=== PATIENT | female | born 1950 | race Caucasian/White ===

== ENCOUNTER 2017-05-06 00:37 | Inpatient (IN) | payer MEDICARE ==
[2017-05-06] VITALS (36 sets, daily range): BP systolic 100–172; BP diastolic 47–132
[~2017-05-06] VITALS: Ht 162.6 cm; Wt 73.9 kg
--- NOTE | ~2017-05-06 | 2DMMODE ---
[facility] [address] [place] [address] 2 D/M-MODE ECHOCARDIOGRAM Name: STEPHON BOYLE Tirso Room #: 215-P ADM IN ..#: [id number] Admission: 05/06/17 Attend Phys: Marv Wilder MD Discharge: Date of : 52 Date of Service: 05/08/17 1150 Report #: [id number] THIS REPORT FOR: //name// APPROVED REPORT Study performed: 05/08/2017 10:21:27 EXAM: Comprehensive 2D, Doppler, and color-flow Echocardiogram Patient Location: Bedside Room #: 215 Status: routine BSA: 1.78 BP: 118/66 mmHg Other Information Study Quality: Adequate Indications SD 2D Dimensions RVDd: 28.57 mm LVEF(%): 59.43 (>50%) IVSd: 13.38 (7-11mm) LVOT Diam: 18.49 (18-24mm) LVDd: 38.97 mm PWd: 14.21 (7-11mm) Ascending Ao: 26.04 (22-36mm) LVDs: 26.87 (25-40mm) Aortic Root: 26.95 mm IVC: 10.00 mm Ruiz's LVEF: 59.43 % Volumes Left Atrial Volume (Systole) Single Plane 4CH: 37.32 mL Single Plane 2CH: 41.96 mL LA ESV Index: 23.00 mL/m2 Aortic Valve AoV Peak Willard.: 1.75 m/s AO Peak Gr.: 12.24 mmHg LVOT Max P.14 mmHg LVOT Max V: 0.89 m/s LARY Vmax: 1.36 cm2 Mitral Valve E/A Ratio: 0.6 MV Decel. Time: 311.69 ms MV E Max Willard.: 0.70 m/s [facility] [place] [address] 2 D/M-MODE ECHOCARDIOGRAM Name: STEPHON BOYLE Room #: 215-P [facility] IN M.R.#: [id number] Admission: 05/06/17 Attend Phys: Marv Wilder MD Discharge: Date of : 52 Date of Service: 05/08/17 1150 Report #: [id number] A Willard.: 1.15 m/s MV PHT: 90.39 ms IVRT: 121.11 ms Pulmonary Valve PV Peak Willard.: 1.17 m/s PV Peak Gr.: 5.58 mmHg Pulmonary Vein P Vein S: 0.55 m/s P Vein A: 0.26 m/s P Vein D: 0.30 m/s P Vein A Dur.: 114.2 msec P Vein S/D Ratio: 1.83 Tricuspid Valve RAP Estimate: 5.00 mmHg Left Ventricle The left ventricle is normal size. Paradoxical septal motion consistent with conduction abnormality. Mild concentric left ventricular hypertrophy. The left ventricular systolic function is normal. The left ventricular ejection fraction is within the normal range. LVEF is 55%. Mild diastolic dysfunction is present (impaired relaxation pattern). Right Ventricle The right ventricle is normal size. Right ventricle is mildly hypokinetic. Atria The left atrium size is normal. The right atrium size is normal. Aortic Valve Aortic valve leaflets are mildly thickened. Trace aortic regurgitation. There is no aortic valvular stenosis. Mitral Valve Mild mitral annular calcification. Trace mitral regurgitation. No evidence of mitral valve stenosis. Tricuspid Valve The tricuspid valve is normal in structure. Trace tricuspid regurgitation. Unable to assess PA pressure. Pulmonic Valve Pulmonic valve is not well visualized. Trace pulmonic regurgitation. [address] [address] 2 D/M-MODE ECHOCARDIOGRAM Name: MONTANASTEPHON Tirso Room #: 215-P [facility] IN .R.#: [id number] Admission: 05/06/17 Attend Phys: Marv Wilder MD Discharge: Date of : 52 Date of Service: 05/08/17 1150 Report #: [id number] Great Vessels The aortic root is normal in size. IVC is normal in size and collapses >50% with inspiration. Pericardium There is no pericardial effusion. <Conclusion> The left ventricle is normal size. Mild concentric left ventricular hypertrophy. The left ventricular systolic function is normal. Mild diastolic dysfunction is present (impaired relaxation pattern). The right ventricle is normal size. The left atrium size is normal. Aortic valve leaflets are mildly thickened. Trace aortic regurgitation. Trace mitral regurgitation. <ELECTRONICALLY SIGNED> By: Max Bermudez MD 05/08/17 1150 1150 1150 Max Bermudez MD /INF
--- NOTE | ~2017-05-06 | EKG ---
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
--- NOTE | ~2017-05-06 | HC ---
[facility] [place] [address] CONSULTATION Name: STEPHON BOYLE Room #: 246-P [facility] IN ..#: [id number] Admission: 05/06/17 Attend Phys: Marv Wilder MD Discharge: Date of : 52 Report #: [id number] THIS REPORT FOR: //name// CC: Marv Wilder DATE OF SERVICE: 05/06/2017 INDICATION: Chest pain. HISTORY OF PRESENT ILLNESS: This is a 67-year-old female with a history of hypertension, hypercholesterolemia, tobacco use, presenting with acute onset of chest pain. She was visiting friends when she developed chest discomfort in the substernal area, radiating to the back and down the left arm. She took an aspirin and a blood pressure medication, but the pain persisted and she presented to the ER at [facility]. The initial evaluation revealed hypertension and a positive troponin level. She was subsequently transferred to [facility]. She is pain free at this time. However, the troponin level is positive and she does have a left bundle-branch block. There is no history of fever, chills, nausea or diarrhea. PAST MEDICAL HISTORY: Hypertension, hypercholesterolemia and tobacco use. Negative for diabetes. ALLERGIES: None. MEDICATIONS: Include Zestoretic one tablet a day. SOCIAL HISTORY: Positive cigarette use daily. FAMILY HISTORY: Negative for premature CAD. REVIEW OF SYSTEMS: A full 10-point review of systems performed. Only the pertinent positives and negatives are described in the HPI. PHYSICAL EXAMINATION: VITAL SIGNS: Blood pressure 110/60, heart rate is 60 beats per minute. GENERAL APPEARANCE: A well-developed, well-nourished female in no acute respiratory distress. HEAD AND EYES: Normocephalic. Sclerae are anicteric. ENT: Oral mucosa moist. NECK: Supple. LUNGS: Clear to auscultation. CARDIAC: Regular rate and rhythm, S1, S2 positive. ABDOMEN: Soft. EXTREMITIES: No major joint deformities. No edema, no cyanosis. [facility] [address] [place] [address] CONSULTATION Name: STEPHON BOYLE Room #: [facility] IN ..#: [id number] Admission: 05/06/17 Attend Phys: Marv Wilder MD Discharge: Date of : 52 Report #: [id number] ECG reveals sinus rhythm, left bundle-branch block. LABORATORY VALUES: White count is 9.9, hemoglobin is 13.3. Sodium is 140, creatinine is 1.2. Troponin is positive at 12.53. LDL is elevated. ASSESSMENT AND PLAN: 1. Non-ST elevation myocardial infarction. Given her presentation and CAD risk factors, we discussed the pros and cons of a cardiac catheterization. All questions were answered and she wishes to proceed with a cardiac catheterization. 2. Left bundle-branch block. 3. Hypertension, continue medications. 4. Hypercholesterolemia, start a statin medication. 5. Tobacco use, complete smoking cessation is recommended. <ELECTRONICALLY SIGNED> By: Max Bermudez MD 05/07/17 0812 0856 1814 Max Bermudez MD /nt
--- NOTE | ~2017-05-06 | CATHLAB ---
[facility] [address] [place] [address] INVASIVE PROCEDURE REPORT Name: STEPHON BOYLE Room #: 246-P [facility] IN ..#: [id number] Admission: 05/06/17 Attend Phys: Marv Wilder MD Discharge: Date of : 52 Date of Service: 05/06/17 1236 Report #: [id number] THIS REPORT FOR: //name// APPROVED REPORT Patient Details Patient Status: In-Patient Room #: The patient is a 67 year-old female Event Personnel Max Bermudez Technical Training Coordinator, Yoli Nicholas, Suzan Steen Barrett, Susan RN RN, Umer Serrano RN sand worker Performed Art Access - R femoral artery* 23361 Initial Mod Sed Same Phys/QHP Gr5y 680435 91502 Mod Sed Same Phys/QHP Ea 547882 Left Heart Cath w/or w/o Coronaries [id number] [facility] [address] w/wo Plasty Single CIRC 588447 [address] Place w/wo Plasty Single Left Main [id number] Indication Non-STEMI , Dyspnea, Chest pain Risk Factors Hypercholesterolemia, Hypertension, Tobacco History () Procedure Narrative The patient was brought urgently to the Cardiac Catheterization Laboratory and was prepped and draped in a sterile manner. The Right Groin^ was infiltrated with 1% Lidocaine subcutaneous anesthesia. A PINNACLE 4FR Sheath #[id number] sheath was inserted into the RFA^. Coronary angiography was performed using coronary diagnostic catheters. The right coronary system was accessed and visualized with a JR 4 catheter. The left coronary system was accessed and visualized with a JL 4 catheter. The left ventricle was accessed and visualized with a Pigtail catheter. Left ventricular/Aortic Valve gradient assessed via catheter pullback. Left ventriculogram was performed in COLLIER projection. The patient tolerated the procedure well and there were no complications associated with the procedure. There was no hematoma. Intraoperative Conscious Sedation Sedation start time: 10:02 Case end Time: 11:35 [facility] [place] [address] INVASIVE PROCEDURE REPORT Name: MONTANASTEPHON Tirso Room #: 246-P [facility] IN [facility]#: [id number] Admission: 05/06/17 Attend Phys: Marv Wilder MD Discharge: Date of : 52 Date of Service: 05/06/17 1236 Report #: [id number] Fentanyl 75.0 mcg Versed 2.0 mg Fluoro Time: 26.12 minutes Dose: DAP 88770.50 cGycm2 3889 mGy Contrast Type and Amount: Visipaque 450 ml Coronary Angiography The patient's coronary anatomy is right dominant. Diagnostic Cath Left Main Patent vessel, with mild disease in the distal segment. LAD Moderate stenosis at the ostium, 40-50%. There is a moderate discrete stenosis in the mid segment, 50%. Diagonal 1 Has a high takeoff, with an ostial stenosis, 40%. Diagonal 2 Patent vessel, with no flow limiting lesions. Circumflex There are severe lesions in the proximal segment with haziness consistent with thrombus. At least 90% stenotic. OM1 Patent vessel, no flow limiting lesions. Right Coronary Dominant vessel with mild diffuse disease in the proximal segment, 30%. R PDA Patent vessel, with no flow-limiting lesions. RPLV Patent vessel, with no flow-limiting lesions. Left Ventriculography The left ventricle is normal in size with normal contractility. The left ventricular ejection fraction is estimated to be 50-55%. Hemodynamics The aortic pressure is 156/78 mmHg with a mean of 104 mmHg. The left ventricular pressure is 141/5 mmHg with a mean of mmHg. The left ventricular end diastolic pressure is 20 mmHg. PCI Technique Lesion Anticoagulation was achieved with Angiomax. Patient was preloaded with Plavix. Percutaneous coronary intervention was performed on the proximal circumflex artery segment. The lesion stenosis prior to intervention was 90% with FANTA 3 flow. A VISTA 6FR XB 3.5 #[id number] Guide Catheter was used to engage the Left Main ostium. A Luge Wire .014 x 182CM #[id number] Interventional Guidewire was used to cross the lesion. BALLOON DILATION A Balloon catheter Euphora RX 2.5 x 12 #[id number] was inserted and [facility] [address] [place] [address] INVASIVE PROCEDURE REPORT Name: STEPHON BOYLE Room #: 246-P [facility] IN M.R.#: [id number] Admission: 05/06/17 Attend Phys: Marv Wilder MD Discharge: Date of : 52 Date of Service: 05/06/17 1236 Report #: [id number] inflated up to 10.00atm for 20seconds. STENT DEPLOYMENT A drug-eluting stent RESOLUTE RX 2.5 X 14 #[id number] was inserted and inflated up to 9.00atm for 14seconds. POST STENT DEPLOYMENT BALLOON DILATION A Balloon catheter Euphora NC RX 2.75 x 15 #[id number] was inserted and inflated up to 16.00atm for 13seconds. Additional Inflation: 18.00atm for 10seconds. Final angiography reveals 0 % stenosis with FANTA 3 flow. STENT DEPLOYMENT A drug-eluting stent RESOLUTE RX 2.75 X 18 #[id number] was inserted and inflated up to 10.00atm for 12seconds. The stent was placed just proximal and overlapping the initial stent. POST STENT DEPLOYMENT BALLOON DILATION A Balloon catheter Euphora NC RX 2.75 x 15 #[id number] was inserted and inflated up to 18.00atm for 10seconds. Final angiography reveals 0 % stenosis with FANTA 3 flow. PCI Technique Lesion 2 Percutaneous Coronary Intervention was performed on the LM. Patient was preloaded with Plavix. A VISTA 6FR XB 3.5 #[id number] Guide Catheter was used to engage the ostium. A Luge Wire .014 x 182CM #[id number] Interventional Guidewire was used to cross the lesion. Balloon Dilation A Balloon catheter Euphora RX 3.0 x 12 #[id number] was inserted and inflated up to 10.00atm for 23seconds. There was a localized dissection within the mid segment of the left main artery. The patient was hemodynamic stable but had chest discomfort. Subsequent injections revealed an increase in the size of the dissection. This area was ballooned and then stented with a 3.5 mm resolute stent. The distal segment of the stent was dilated with a 3.5 mm noncompliant balloon and the more proximal area of the stent was postdilated with a 4.0 mm noncompliant balloon(Euphora NC4 0.0 x 8 mm). Final injections revealed a patent left main stent with FANTA-3 blood flow down the LAD and left circumflex arteries. There was still a visible localized dissection within the mid left main artery. The patient remained hemodynamically stable and the chest pain resolved. Stent Deployment [facility] [address] [place] [address] INVASIVE PROCEDURE REPORT Name: MONTANASTEPHON Tirso Room #: 246-P [facility] IN ..#: [id number] Admission: 05/06/17 Attend Phys: Marv Wilder MD Discharge: Date of : 52 Date of Service: 05/06/17 1236 Report #: [id number] A drug-eluting stent RESOLUTE RX 3.5 X 12 #[id number] was inserted and inflated up to 9.00atm for 12seconds. Post Stent Deployment Balloon Dilation A Balloon catheter Euphora NC RX 3.5 x 6 #[id number] was inserted and inflated up to 18.00atm for 20seconds. Additional Inflation: 16.00atm for 16seconds. Additional Inflation: 16.00atm for 15seconds. POST STENT DEPLOYMENT BALLOON DILATION A Balloon catheter Euphora NC RX 4.0 x 8 #[id number] was inserted and inflated up to 14atm for 17seconds. Additional Inflation: 14atm for 14seconds. Conclusion 1. Successful insertion of drug-eluting stents into the proximal segment of the left circumflex artery. 2. 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 This was stented with a 3.5 mm resolute stent, post dilated with a 4.0 mm noncompliant balloon. 3. Right dominant system. 4. Normal LV systolic function. 5. Recommend dual antiplatelet therapy. 6. Recommend CV surgical consultation. <ELECTRONICALLY SIGNED> By: Max Bermudez MD 05/06/17 1236 1236 1236 Max Bermudez MD /INF
--- NOTE | ~2017-05-06 | EKG ---
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
--- NOTE | ~2017-05-06 | EKG ---
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
--- NOTE | ~2017-05-06 | EKG ---
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
[2017-05-06] MEDS ORDERED: ZESTORETIC 20-1 EAC3 PO (03:30)
[2017-05-06 03:44] LABS: HEMATOCRIT 37.8 % (37.0-47.0); HEMOGLOBIN 13.3 gm/dL (12.0-15.0); MCH 32.7 pg (26.0-34.0); MCHC 35.2 g/dL (28.0-37.0); MCV 92.9 fL (80.0-100.0); RBC 4.06 mil/uL (4.20-5.00); RDW 12.9 % (10.5-14.5); WBC 9.9 thou/uL (4.0-11.0)
[2017-05-06 03:54] LABS: ANION GAP 9 mmol/L (7-16); BUN 23 mg/dL (7-18); CALCIUM 8.9 mg/dL (8.5-10.1); CHLORIDE 106 mmol/L (98-107); CO2 25 mmol/L (21-32); CREATININE 1.2 mg/dL (0.6-1.0); GLUCOSE 129 mg/dL (74-106); POTASSIUM 3.8 mmol/L (3.5-5.1); SODIUM 140 mmol/L (136-145)
[2017-05-06 04:02] LABS: CHOLESTEROL 237 mg/dL (<200); HDL CHOLESTEROL 35 mg/dL (>40); LDL CHOLESTEROL 123 mg/dL (<100); TC:HDL 6.8 Ratio (Not establshd); TRIGLYCERIDE 398 mg/dL (<150); VLDL 80 mg/dL (<40)
[2017-05-06 04:09] LABS: SERUM ASSESSMENT Slight Lipemia; TROPONIN-I 12.53 ng/mL (<0.06)
[2017-05-06 08:49] LABS: HEMATOCRIT 38.3 % (37.0-47.0); HEMOGLOBIN 13.2 gm/dL (12.0-15.0); MCH 31.8 pg (26.0-34.0); MCHC 34.3 g/dL (28.0-37.0); MCV 92.7 fL (80.0-100.0); RBC 4.14 mil/uL (4.20-5.00); RDW 13.3 % (10.5-14.5); WBC 7.9 thou/uL (4.0-11.0)
[2017-05-06 08:59] LABS: PROTIME 9.6 Seconds (9.3-11.4)
[2017-05-07] VITALS (15 sets, daily range): BP systolic 85–149; BP diastolic 39–113
[2017-05-07 03:44] LABS: HEMOGLOBIN 12.6 gm/dL (12.0-15.0); MCH 32.3 pg (26.0-34.0); MCHC 34.9 g/dL (28.0-37.0); MCV 92.5 fL (80.0-100.0); RBC 3.89 mil/uL (4.20-5.00); RDW 13.1 % (10.5-14.5)
[2017-05-07 04:00] LABS: CREATININE 1.3 mg/dL (0.6-1.0); POTASSIUM 3.8 mmol/L (3.5-5.1)
[2017-05-07 04:09] LABS: TROPONIN-I 11.84 ng/mL (<0.06)
[2017-05-08 01:15] VITALS: BP 108/61
[2017-05-08 03:47] LABS: CREATININE 1.3 mg/dL (0.6-1.0)
[2017-05-08 03:49] LABS: TROPONIN-I 7.06 ng/mL (<0.06)
[2017-05-08 04:30] VITALS: BP 122/66
[2017-05-08 07:55] VITALS: BP 118/66
[2017-05-08] MEDS ORDERED: ASPIR 8181 MG PO (08:30)
[2017-05-08] MEDS ORDERED: CARVEDILOL6.25 MG PO (08:30)
[2017-05-08] MEDS ORDERED: PEPCID20 MG PO (08:30)
[2017-05-08] MEDS ORDERED: ATORVASTATIN CA40 MG PO (08:30)
[2017-05-08] MEDS ORDERED: LISINOPRIL5 MG PO (08:30)
[2017-05-08] MEDS ORDERED: CLOPIDOGREL75 MG PO (08:30)
[2017-05-08 10:58] VITALS: BP 118/66
[2017-05-08 11:01] VITALS: BP 118/66
== END 2017-05-08 12:39 | disposition home or self-care (01) | DRG 247 ==
LOC: 2N 00:37 → ICU 03:03 → 2N 03:03 → ICU 11:28 → 2N 05-07 19:05
PROVIDERS: Internal Medicine Cardiovascular Disease; Nurse Practitioner Family
PROC: 4A023N7 Measurement of Cardiac Sampling and Pressure, Left Heart, Percutaneous Approach (ICD-10-PCS; principal; 2017-05-06)
PROC: 027035Z Dilation of Coronary Artery, One Artery with Two Drug-eluting Intraluminal Devices, Percutaneous Approach (ICD-10-PCS; principal; 2017-05-06)
PROC: B2111ZZ Fluoroscopy of Multiple Coronary Arteries using Low Osmolar Contrast (ICD-10-PCS; principal; 2017-05-06)
PROC: B2151ZZ Fluoroscopy of Left Heart using Low Osmolar Contrast (ICD-10-PCS; principal; 2017-05-06)
DX: I21.4 Non-ST elevation (NSTEMI) myocardial infarction (principal); I44.7 Left bundle-branch block, unspecified; I10 Essential (primary) hypertension; E78.00 Pure hypercholesterolemia, unspecified; F17.210 Nicotine dependence, cigarettes, uncomplicated; Z90.710 Acquired absence of both cervix and uterus; H40.9 Unspecified glaucoma; Z82.49 Family history of ischemic heart disease and other diseases of the circulatory system; Z82.3 Family history of stroke; Z71.6 Tobacco abuse counseling
CPT/HCPCS: 10081; 10203

== ENCOUNTER → 2019-06-09 | Outpatient (CLI) | payer OTHER ==
[~2019-06-09] MED LIST: ASPIR 8181 MG PO; ATORVASTATIN CA40 MG PO; CARVEDILOL6.25 MG PO; CLOPIDOGREL75 MG PO; LISINOPRIL5 MG PO; PEPCID20 MG PO; ZESTORETIC 20-1 EAC3 PO
== END ==
LOC: SJCVC 11:26
DX: I44.7 Left bundle-branch block, unspecified (principal); R94.31 Abnormal electrocardiogram [ECG] [EKG]; I25.10 Atherosclerotic heart disease of native coronary artery without angina pectoris; E78.00 Pure hypercholesterolemia, unspecified; I10 Essential (primary) hypertension; I25.2 Old myocardial infarction; F17.210 Nicotine dependence, cigarettes, uncomplicated; Z95.1 Presence of aortocoronary bypass graft